=== PATIENT | female | born 1980 | race African-American/Black ===

== ENCOUNTER 2023-12-16 18:27 | Emergency (ER) | payer MEDICAID, MEDICARE ==
[~2023-12-16] VITALS: Ht 162.6 cm; Wt 91.0 kg
[2023-12-16 18:30] VITALS: O2SAT 100
[2023-12-16 20:17] VITALS: BP 126/80; PULSE 74; RESP 18; TEMP 98.7
[2023-12-16] MEDS: CLONIDINE 0.1MG TABLET PO ONE (20:21)
== END 2023-12-16 20:35 | disposition home or self-care (01) ==
LOC: ER 18:27
DX: I10 Essential (primary) hypertension (principal); Z98.890 Other specified postprocedural states
CPT/HCPCS: 99283

== ENCOUNTER 2024-01-16 23:12 | Emergency (ER) | payer MEDICARE, MEDICAID ==
[~2024-01-16] VITALS: Ht 162.6 cm; Wt 75.0 kg
[2024-01-16 23:31] VITALS: TEMP 98.5; O2SAT 100
[2024-01-17] MEDS: DIPHENHYDRAMINE 25MG CAPSULE PO ONE
[2024-01-17] MEDS ORDERED: DIPH25CA83 MT (00:01)
[2024-01-17] MEDS ORDERED: HYDR28.461 TP (00:01)
[2024-01-17] MEDS ORDERED: IBUP-2029 MT (00:01)
[2024-01-17 00:11] VITALS: BP 133/84; PULSE 104; RESP 18
[2024-01-17] MEDS: IBUPROFEN 400MG TABLET PO ONE (00:11)
== END 2024-01-17 00:25 | disposition home or self-care (01) ==
LOC: ER 23:12
DX: L84 Corns and callosities (principal); I10 Essential (primary) hypertension; Z98.890 Other specified postprocedural states
CPT/HCPCS: 99282; Q0163

== ENCOUNTER 2024-01-19 21:53 | Emergency (ER) | payer MEDICARE, MEDICAID ==
[~2024-01-19] VITALS: Ht 162.6 cm; Wt 78.0 kg
[~2024-01-19 21:53] MED LIST: DIPH25CA83 MT; HYDR28.461 TP; IBUP-2029 MT
[2024-01-19 22:02] VITALS: BP 123/70; PULSE 82; RESP 16; TEMP 98.2; O2SAT 100
[2024-01-19 22:43] LABS: BASOPHILS % 0.4 % (0.0-2.0); EOSINOPHILS % 2.6 % (0.0-5.0); HEMATOCRIT. 29.9 % (36.0-48.0); HEMOGLOBIN. 9.3 g/dL (12.0-16.0); LYMPHOCYTES % 41.3 % (20.0-50.0); MEAN CORPUSCULAR VOLUME 67.7 fL (81.0-99.0); MEAN PLATELET VOLUME 9.2 fl (7.4-10.4); MONOCYTES % 7.8 % (2.0-8.0); NEUTROPHILS % 47.9 % (40.0-76.0); PLATELET 267 x1000/uL (130-400); RED BLOOD CELL COUNT 4.41 mill/uL (4.2-5.4); RED CELL DISTRIBUTION WIDTH 23.4 % (11.6-14.6); WHITE BLOOD COUNT 6.6 x1000/uL (4.5-11.0)
[2024-01-19 22:44] LABS: ADD RBC MORPHOLOGY YES; DIFFERENTIAL COMMENT 1
[2024-01-19 22:46] LABS: CHLORIDE 111 mEq/L (98-107); POTASSIUM 3.8 mEq/L (3.5-5.1); SODIUM 140 mEq/L (136-145)
[2024-01-19 22:47] LABS: CALCIUM 8.7 mg/dL (8.7-10.4); CARBON DIOXIDE 23 mEq/L (21-32)
[2024-01-19 22:52] LABS: CREATININE 0.9 mg/dL (0.6-1.0); GLUCOSE 81 mg/dL (70-105); UREA NITROGEN BLOOD 14 mg/dL (9-23)
[2024-01-19 23:05] LABS: ANISOCYTOSIS 2+; HYPOCHROMASIA 2+; MICROCYTOSIS 3+; PLATELET ESTIMATE NORMAL
== END 2024-01-20 00:42 | disposition home or self-care (01) ==
LOC: ER 22:01
DX: E86.0 Dehydration (principal); I10 Essential (primary) hypertension; Z98.890 Other specified postprocedural states
CPT/HCPCS: 36415; 80048; 85025; 99283

== ENCOUNTER 2024-01-26 17:05 | Emergency (ER) | payer MEDICARE, MEDICAID ==
[~2024-01-26] VITALS: Ht 167.6 cm; Wt 67.0 kg
[2024-01-26 17:09] VITALS: BP 102/68; PULSE 68; RESP 20; TEMP 98.2; O2SAT 99
== END 2024-01-26 17:42 | disposition home or self-care (01) ==
LOC: ER 17:05
DX: I10 Essential (primary) hypertension (principal); Z98.890 Other specified postprocedural states
CPT/HCPCS: 99281

== ENCOUNTER 2024-01-29 16:32 | Emergency (ER) | payer MEDICARE, MEDICAID ==
[~2024-01-29] VITALS: Ht 162.6 cm; Wt 91.0 kg
[2024-01-29 16:38] VITALS: O2SAT 100
[2024-01-29] MEDS ORDERED: ONDANSETRON 4MG ODT PO ONE (18:45)
[2024-01-29] MEDS: ONDANSETRON 4MG ODT PO NR (20:16)
[2024-01-29 21:44] LABS: BASOPHILS % 0.2 % (0.0-2.0); EOSINOPHILS % 3.1 % (0.0-5.0); HEMATOCRIT. 29.8 % (36.0-48.0); HEMOGLOBIN. 9.2 g/dL (12.0-16.0); LYMPHOCYTES % 55.3 % (20.0-50.0); MEAN CORPUSCULAR HEMOGLOBIN 21.2 pg (28.0-32.0); MEAN CORPUSCULAR VOLUME 68.3 fL (81.0-99.0); MEAN PLATELET VOLUME 9.1 fl (7.4-10.4); MONOCYTES % 7.6 % (2.0-8.0); NEUTROPHILS % 33.8 % (40.0-76.0); PLATELET 235 x1000/uL (130-400); RED BLOOD CELL COUNT 4.36 mill/uL (4.2-5.4); RED CELL DISTRIBUTION WIDTH 24.1 % (11.6-14.6); WHITE BLOOD COUNT 6.6 x1000/uL (4.5-11.0)
[2024-01-29 21:45] LABS: ADD RBC MORPHOLOGY YES; DIFFERENTIAL COMMENT 1
[2024-01-29 21:50] LABS: CHLORIDE 110 mEq/L (98-107); POTASSIUM 4.1 mEq/L (3.5-5.1); SODIUM 139 mEq/L (136-145)
[2024-01-29 21:51] LABS: CALCIUM 8.7 mg/dL (8.7-10.4); CARBON DIOXIDE 23 mEq/L (21-32)
[2024-01-29 21:54] LABS: HCG SCREEN NEGATIVE
[2024-01-29 21:56] LABS: CREATININE 0.8 mg/dL (0.6-1.0); GLUCOSE 82 mg/dL (70-105); UREA NITROGEN BLOOD 11 mg/dL (9-23)
[2024-01-29 21:58] LABS: ALANINE AMINOTRANSFERASE 75 IU/L (10-49); ALBUMIN 3.9 g/dL (3.2-4.8); ASPARTATE AMINOTRANSFERASE 91 IU/L (<34); BILIRUBIN TOTAL 0.4 mg/dL (0.1-1.0); PROTEIN TOTAL 6.1 g/dL (6.0-8.3)
[2024-01-29 22:05] LABS: TROPONIN I HIGH SENSITIVITY < 4 ng/L (3.0-34)
[2024-01-29 22:09] LABS: HYPOCHROMASIA 2+; MICROCYTOSIS 3+
[2024-01-29 22:10] LABS: PLATELET ESTIMATE NORMAL; ROULEAUX 1+
[2024-01-29 22:50] VITALS: BP 141/96; PULSE 70; RESP 18; TEMP 98.4
== END 2024-01-29 22:54 | disposition home or self-care (01) ==
LOC: ER 16:32
DX: R42 Dizziness and giddiness (principal); I10 Essential (primary) hypertension; Z98.890 Other specified postprocedural states
CPT/HCPCS: 36415; 80053; 84484; 84703; 85025; 93005; 99284; Q0162

== ENCOUNTER 2024-02-03 13:08 | Emergency (ER) | payer MEDICARE, MEDICAID ==
[~2024-02-03] VITALS: Ht 152.4 cm; Wt 75.0 kg
[2024-02-03 13:12] VITALS: BP 125/83; PULSE 78; RESP 18; TEMP 98.6; O2SAT 100
[2024-02-04] MEDS ORDERED: MULT-278 PO (23:53)
== END 2024-02-03 17:40 | disposition home or self-care (01) ==
LOC: ER 13:08
DX: Z00.00 Encounter for general adult medical examination without abnormal findings (principal); I10 Essential (primary) hypertension
CPT/HCPCS: 93005; 99283

== ENCOUNTER 2024-02-04 00:40 | Emergency (ER) | payer MEDICARE, MEDICAID ==
[~2024-02-04] VITALS: Ht 162.6 cm; Wt 63.0 kg
[2024-02-04 00:47] VITALS: BP 121/78; PULSE 78; RESP 18; TEMP 97.5; O2SAT 95
[2024-02-04] MEDS ORDERED: MULT-278 PO (23:53)
[2024-02-05] MEDS ORDERED: ACET-2708 MT (23:26)
== END 2024-02-04 04:29 | disposition left against medical advice (07) ==
LOC: ER 00:40
DX: R07.89 Other chest pain (principal); R45.1 Restlessness and agitation; I10 Essential (primary) hypertension; Z00.00 Encounter for general adult medical examination without abnormal findings; Z53.29 Procedure and treatment not carried out because of patient's decision for other reasons
CPT/HCPCS: 99283

== ENCOUNTER 2024-02-04 20:14 | Emergency (ER) | payer MEDICARE, MEDICAID ==
[~2024-02-04] VITALS: Ht 162.6 cm; Wt 75.0 kg
[2024-02-04 20:26] VITALS: TEMP 98.4; O2SAT 100
[2024-02-04] MEDS: SODIUM CHLORIDE 0.9% 1,000 ML IV ONE (22:00)
[2024-02-04 23:00] LABS: BASOPHILS % 0.5 % (0.0-2.0); EOSINOPHILS % 3.8 % (0.0-5.0); HEMATOCRIT. 30.9 % (36.0-48.0); HEMOGLOBIN. 9.6 g/dL (12.0-16.0); LYMPHOCYTES % 45.5 % (20.0-50.0); MEAN CORPUSCULAR HEMOGLOBIN 21.4 pg (28.0-32.0); MEAN CORPUSCULAR HGB CONC 31.1 g/dL (31.0-37.0); MEAN CORPUSCULAR VOLUME 68.9 fL (81.0-99.0); MEAN PLATELET VOLUME 9.4 fl (7.4-10.4); MONOCYTES % 8.3 % (2.0-8.0); NEUTROPHILS % 41.9 % (40.0-76.0); PLATELET 288 x1000/uL (130-400); RED BLOOD CELL COUNT 4.48 mill/uL (4.2-5.4); RED CELL DISTRIBUTION WIDTH 23.5 % (11.6-14.6); WHITE BLOOD COUNT 6.2 x1000/uL (4.5-11.0)
[2024-02-04 23:01] LABS: ADD RBC MORPHOLOGY YES; DIFFERENTIAL COMMENT 1
[2024-02-04 23:09] LABS: CHLORIDE 112 mEq/L (98-107); POTASSIUM 4.1 mEq/L (3.5-5.1); SODIUM 141 mEq/L (136-145)
[2024-02-04 23:10] LABS: CALCIUM 9.1 mg/dL (8.7-10.4); CARBON DIOXIDE 25 mEq/L (21-32)
[2024-02-04 23:13] LABS: HCG SCREEN NEGATIVE
[2024-02-04 23:15] LABS: CREATININE 0.9 mg/dL (0.6-1.0); GLUCOSE 79 mg/dL (70-105); UREA NITROGEN BLOOD 12 mg/dL (9-23)
[2024-02-04 23:20] LABS: ANISOCYTOSIS 2+; HYPOCHROMASIA 2+; MICROCYTOSIS 3+; PLATELET ESTIMATE NORMAL
[2024-02-04] MEDS ORDERED: MULT-278 PO (23:53)
[2024-02-05 00:05] VITALS: BP 130/70; PULSE 80; RESP 15
[2024-02-05] MEDS ORDERED: ACET-2708 MT (23:26)
== END 2024-02-05 00:09 | disposition home or self-care (01) ==
LOC: ER 20:14
DX: D64.9 Anemia, unspecified (principal); E86.0 Dehydration; I10 Essential (primary) hypertension; Z59.00 Homelessness unspecified
CPT/HCPCS: 99283; 96360; 80048; 84703; 85025; 36415; J7030

== ENCOUNTER 2024-02-05 22:13 | Emergency (ER) | payer MEDICARE, MEDICAID ==
[~2024-02-05] VITALS: Ht 167.6 cm; Wt 61.0 kg
[~2024-02-05 22:13] MED LIST changes: +MULT-278 PO
[2024-02-05 22:27] VITALS: BP 146/88; PULSE 84; RESP 18; TEMP 98.2; O2SAT 100
[2024-02-05] MEDS ORDERED: ACET-2708 MT (23:26)
[2024-02-05] MEDS: ACETAMINOPHEN 325MG TABLET PO ONE (23:29)
== END 2024-02-05 23:44 | disposition home or self-care (01) ==
LOC: ER 22:13
DX: R51.9 Headache, unspecified (principal); I10 Essential (primary) hypertension
CPT/HCPCS: 99282

== ENCOUNTER 2024-03-29 22:55 | Emergency (ER) | payer MEDICAID, MEDICARE ==
[~2024-03-29] VITALS: Ht 165.1 cm; Wt 75.0 kg
[~2024-03-29 22:55] MED LIST changes: +ACET-2708 MT
[2024-03-29 23:00] VITALS: O2SAT 98
[2024-03-29 23:40] VITALS: BP 145/97; PULSE 81; TEMP 98.7; O2SAT 99
[2024-03-30] MEDS: ACETAMINOPHEN 500MG TABLET PO ONE (02:31)
[2024-03-30 02:45] VITALS: RESP 19
== END 2024-03-30 03:25 | disposition home or self-care (01) ==
LOC: EDBD 23:03 → ER 23:03
DX: R51.9 Headache, unspecified (principal); I10 Essential (primary) hypertension; Z79.899 Other long term (current) drug therapy
CPT/HCPCS: 99282

== ENCOUNTER 2024-04-07 17:19 | Emergency (ER) | payer MEDICARE, MEDICAID ==
[~2024-04-07] VITALS: Ht 165.1 cm; Wt 74.0 kg
[2024-04-07 17:33] VITALS: O2SAT 100
[2024-04-07 18:46] VITALS: BP 144/87; PULSE 70; RESP 18; TEMP 98.2; O2SAT 99
[2024-04-07 18:49] LABS: BASOPHILS % 0.4 % (0.0-2.0); DIFFERENTIAL COMMENT 0; EOSINOPHILS % 2.3 % (0.0-5.0); HEMATOCRIT. 33.2 % (36.0-48.0); HEMOGLOBIN. 10.2 g/dL (12.0-16.0); LYMPHOCYTES % 39.3 % (20.0-50.0); MEAN CORPUSCULAR HEMOGLOBIN 21.8 pg (28.0-32.0); MEAN CORPUSCULAR HGB CONC 30.8 g/dL (31.0-37.0); MEAN PLATELET VOLUME 9.7 fl (7.4-10.4); MONOCYTES % 9.3 % (2.0-8.0); NEUTROPHILS % 48.7 % (40.0-76.0); PLATELET 259 x1000/uL (130-400); RED BLOOD CELL COUNT 4.68 mill/uL (4.2-5.4); RED CELL DISTRIBUTION WIDTH 20.5 % (11.6-14.6); WHITE BLOOD COUNT 7.1 x1000/uL (4.5-11.0)
[2024-04-07 18:53] LABS: CHLORIDE 110 mEq/L (98-107); POTASSIUM 3.9 mEq/L (3.5-5.1); SODIUM 141 mEq/L (136-145)
[2024-04-07 18:54] LABS: CALCIUM 9.5 mg/dL (8.7-10.4); CARBON DIOXIDE 25 mEq/L (21-32)
[2024-04-07 18:59] LABS: CREATININE 1.2 mg/dL (0.6-1.0); GLUCOSE 76 mg/dL (70-105); UREA NITROGEN BLOOD 16 mg/dL (9-23)
[2024-04-07 19:00] LABS: TROPONIN I HIGH SENSITIVITY 4 ng/L (3.0-34)
[2024-04-07 19:29] LABS: HCG SCREEN NEGATIVE
== END 2024-04-07 21:30 | disposition home or self-care (01) ==
LOC: ER 17:19
DX: R42 Dizziness and giddiness (principal); N17.9 Acute kidney failure, unspecified; D64.9 Anemia, unspecified; I10 Essential (primary) hypertension; Z79.899 Other long term (current) drug therapy; Z98.890 Other specified postprocedural states
CPT/HCPCS: 36415; 80048; 84484; 84703; 85025; 99283